=== PATIENT | male | born 1960 | race Caucasian/White ===

== ENCOUNTER 2017-08-24 12:30 | Inpatient (IN) ==
--- NOTE | 2017-08-23 21:10 | Discharge Summary ---
<Stephanie Tabares - Last Filed: 08/23/17 21:08> Date of Encounter: 08/23/17 - Discharge Diagnosis (1) Arthritis of shoulder region, left Priority: Primary Status: Acute - Discharge Medications Prescriptions: OxyCODONE Immed Rel [Roxicodone 5 MG] 5 mg PO Q6HR PRN #28 tablet PRN Reason: Pain Home Medications: OxyCODONE Immed Rel [Roxicodone 5 MG] 5 mg PO Q6HR PRN #28 tablet 08/23/17 [Rx] Omeprazole [PriLOSEC] 20 mg PO DAILY 08/24/17 [History] Venlafaxine HCl [Venlafaxine HCl ER] 75 mg PO DAILY 08/24/17 [History] Primary care physician: Duglas Forrest - Discharge Instructions Follow Up With: Stephanie Greene DO [Primary Care Provider] - - Hospital Course Hospital course: Mr. Trejo is a 56 year old male - Time Spent with Patient Total time spent providing and/or coordinating discharge services: <Jack Frey - Last Filed: 08/24/17 13:09> Date of Encounter: 08/24/17 - Discharge Diagnosis (1) Status post total replacement of left shoulder Priority: Primary Status: Acute (2) Arthritis of shoulder region, left Priority: Primary Status: Chronic Primary care physician: Duglas Forrest - Hospital Course Hospital course: Mr. Trejo is a 56 year old male - Time Spent with Patient Total time spent providing and/or coordinating discharge services:
[2017-08-24] MEDS ORDERED: CeFAZolin Syr 2,000MG/20 ML 2,000 MG/20 ML SYRINGE IVPB ONE (12:43)
[2017-08-24] MEDS ORDERED: Ringers Solution, Lactated 1,000 ML IVC SCH ×2 (12:45→16:39)
--- NOTE | 2017-08-24 13:01 | History & Physical Report ---
Date of Encounter: 08/24/17 Time of Encounter: 13:01 24 Hour HP Update - Instructions Instructions: If the History and Physical is less than 30 days old and was completed prior to A.M. admission and or procedure and has NOT been updated on calendar day of procedure please complete this update prior to performing procedure. - Update Patient reports changes in Medical Condition: No Changes in examination, assessment, or condition: No Changes in Medication: No Preop tests/diagnostics Reviewed: Yes Surgery Remains Indicated: Yes Consent for Planned Operative Procedure(s) Verified: Yes - Pre-Operative Checklist Preoperative Checklist Indicated: No Prophylactic Antibiotic Ordered: Yes Is VTE Prophylaxis Indicated?: Yes
[2017-08-24] MEDS ORDERED: Famotidine 20 MG/2 ML VIAL IVP ONE (13:12)
[2017-08-24] MEDS ORDERED: Gabapentin 300 MG CAPSULE PO ONE (13:12)
--- NOTE | 2017-08-24 13:20 | Anesthesia Evaluation PreOp ---
Date of Encounter: 08/24/17 Time of Encounter: 13:15 - Past History Planned Operation: Left Total Shoulder Cardiac History: Denies any Significant Hx Pulmonary History: Denies Any Significant HX AQUATICS COORDINATOR History: Denies Any Significant HX Other Medical History: GERD Anesthesia History: No Prior Anesthetic Complications Alcohol Use: none Drug use: none Medications and Allergies OxyCODONE Immed Rel [Roxicodone 5 MG] 5 mg PO Q6HR PRN #28 tablet 08/23/17 [Rx] Omeprazole [PriLOSEC] 20 mg PO DAILY 08/24/17 [History] Venlafaxine HCl [Venlafaxine HCl ER] 75 mg PO DAILY 08/24/17 [History] 3 Allergy/AdvReac Type Severity Reaction Status Date / Time No Known Allergies Allergy Verified 08/24/17 13:03 - Meds/Allergy Pre-op Review Medications Reviewed: Yes Allergies Reviewed: Yes Beta Blockers on Current Med List: No Anesthesia Results - Labs Laboratory Tests 08/21/17 08/21/17 09:51 09:51 Hgb 14.9 Hct 45.8 Plt Count 225 Sodium 139 Potassium 4.2 BUN 16 Creatinine 0.90 Anesthesia Exam O2 Sat Height 1.78 m Height 1.78 m Height 1.78 m Weight 95.708 kg Weight 95.708 kg Weight 95.708 kg O2 Sat by Pulse Oximetry 95 Vital Signs Temp Pulse Resp BP Pulse Ox 98.1 F 75 18 145/88 95 08/24/17 12:43 08/24/17 12:43 08/24/17 12:43 08/24/17 12:43 08/24/17 12:43 Height: 5'10 Weight: 211 lbs NPO (# of Hours): MN Pain Scale: 0 - HEENT Pupil (Motor): Pupils equal, EOMI Mallampati: II Teeth: Normal Oral Opening: Greater than 3 - AQUATICS COORDINATOR LOC: Oriented AQUATICS COORDINATOR Motor: Normal RUE, Normal LUE, Normal RLE, Normal LLE, Normal Face AQUATICS COORDINATOR Sensory: Normal: RUE, LUE, RLE, LLE, Face - Cardiac Rhythm: Regular Murmur: None JVD: No Carotid Bruit: No - Pulmonary Breath Sounds: bilateral Clear Respiratory Effort: Symmetrical Anesthesia Assess/Plan ASA Score: 2 Modified Weir Scale for Level of Consciousness: Cooperative, oriented, and tranquil Anesthetic Plan: General, Regional Monitoring Plan: Standard Monitors Recovery Plan: PACU (Discussed GA and RA, agrees to proceed)
[2017-08-24] MEDS ORDERED: ROPIVACAINE HCL/PF 0.5% 30 ML VIAL ONE (13:40)
--- NOTE | 2017-08-24 13:55 | Anesthesia Procedures ---
Date of Encounter: 08/24/17 Time of Encounter: 13:53 Procedures: Anesthesia - Nerve Block Procedure Date: 08/24/17 Time: 13:53 Allergies/Adv Reactions: NKDA Pre-op Diagnosis: L shoulder arthritis Surgical Procedure: L TSR Checklist: Correct Patient Identifier, Correct procedure, History checked Correct side: Left Blood Thinner: No Monitor Applied: EKG, BP, Pulse Oximetry Supplemental Oxygen via Nasal Cannula (L/min): 2 Sedation: Versed (mg): 2 Sedation: Fentanyl (mcg): 100 Indication: Post Op Analgesia (requested by Dr. Frey) Pre-op Neuro Deficits: No Block Type: Supraclavicular, Other (SCP) Catheter placed: No Sterile Technique: Yes Ultrasound used: Yes Anatomy identified: Yes Visual spread of Local: Yes Neuro Stimulation: No Blood on Needle Aspiration: No Smooth Injection of Local: Yes Pain with Injection of Local: No Prep: Chlorhexadine Needle: 22 x 50 mm Stimuplex Local: Ropivacaine (0.5%, 25mL for supraclavicular, 5mL for SCP), Other (6mg dexamethasone) Number of Attempts: 1 Complications: None/effective block Vitals: please see Ivonne Ardon RN's electronic documentation for VS
[2017-08-24] MEDS ORDERED: *HR* HYDROmorphone (PF) 1 MG/ML SYRINGE IVP PRN ×2 (13:56→16:39)
[2017-08-24] MEDS ORDERED: Ondansetron 4 MG/2 ML VIAL IVP PRN ×2 (13:56→16:39)
[2017-08-24] MEDS ORDERED: Dexamethasone 4 MG/ML VIAL ONE (14:20)
[2017-08-24] MEDS ORDERED: *HR* Midazolam HCl 2 MG/2 ML VIAL ONE (14:20)
[2017-08-24] MEDS ORDERED: *HR* FentaNYL (PF) 100 MCG/2 ML VIAL ONE (14:20)
[2017-08-24] MEDS ORDERED: *HR* Propofol 200 MG/20 ML VIAL IVP ONE (14:20)
[2017-08-24] MEDS ORDERED: *HR* Succinylcholine 200 MG/10 ML VIAL IVP ONE (14:20)
[2017-08-24] MEDS ORDERED: Lidocaine -MPF 2% 2 ML VIAL ONE (14:20)
[2017-08-24] MEDS ORDERED: EPHEDrine 50 MG/ML VIAL ONE (14:20)
[2017-08-24] MEDS ORDERED: Ondansetron 4 MG/2 ML VIAL ONE (15:09)
--- NOTE | 2017-08-24 15:13 | Orthopedic Operative Note ---
Date of procedure: 08/24/17 Pre-op diagnosis: Left shoulder arthritis Post-op diagnosis: same Procedure: Procedure: Left Total Shoulder Replacement Estimated blood loss: 100 cc Hardware:Arthrex glenoid: Large keel Eclipse 49 mm trunnion, 40 mm Eclipse Hollow screw, 49 x 18 Eclipse head 4, 4.75 swivel lock suture anchors Exam Under anesthesia:restricted all planes Procedural Notes: Grade 4 arthritic changes humeral head and glenoid socket Operative procedure: The patient was brought to the operating room and placed on the operating room table. After general anesthesia was administered the operative shoulder was examined. Findings were noted. The patient was placed in the modified beachchair position. All pressure points were padded appropriately. And the head was stabilized in the neutral position. The operative extremity was prepped and draped in the sterile surgical fashion. The patient received IV antibiotics prior to skin incision. A standard deltopectoral approach was made to the operative shoulder. Incision was made to the skin and subcutaneous tissue,hemo stasis was obtained with Bovie cautery. Using careful blunt dissection the cephalic vein was identified and mobilized medially. The deltopectoral interval was developed and the clavipectoral fascia was incised. The subscap was released off the lesser tuberosity and tagged with #2 FiberWire suture. The humerus was dislocated osteophytes were present were removed and the humeral cut was made along the anatomic neck, it was sized to a 49. Anterior and posterior Bankart retractors were placed to expose the glenoid. The glenoid guide was seated and the centering hole was made. It was reamed with the large appropriate reamer. The finishing guide was seated superior and inferior drill holes were placed. Finishing punch was seated trial was seated had good fit and fixation. The large glenoid keeled component was cemented in place held with digital pressure until cemented hardened. Component had good fit and fixation. The humerus was redislocated and prepared metaphyseal guide, the pin was seated measuring 40 mm . Trial components were seated shoulder had good stability. The component was impacted in place the eclipse screw 40 mm was seated giving excellent fixation. 49 mm head was seated shoulder had excellent stability and motion. Subscap was repaired with 4 #2 fiber tape placed in a José Manuel-Ariel fashion and secured to lateral tuberosity with 4, 4.75 swivel lock suture anchors. the shoulder was closed by the PA. The deltopectoral interval was closed with a running #1 PDS suture, subcutaneous tissue was irrigated and closed with 0 PDS suture, the skin was closed with Dermabond. The patient was placed in a sterile dressing, abduction brace and extubated. The patient was then transferred to the recovery room in stable condition. Anesthesia: JAYLEN Surgeon: Jack Frey Tobacco Sweeper: Sarah Knowles Condition: stable Disposition: PACU
[2017-08-24 15:56] LABS: Hematocrit 40.1 % (37.5-50.1)
[2017-08-24 15:59] LABS: Hemoglobin 13.2 g/dL (12.9-16.9)
--- NOTE | 2017-08-24 16:00 | Anesthesia Evaluation Post Op ---
Date of Encounter: 08/24/17 Time of Encounter: 15:59 - Vital Signs Vital Signs: Selected Entries 08/24/17 15:54 Temperature 98.1 F Pulse Rate 80 Respiratory Rate 14 Blood Pressure 131/80 O2 Sat by Pulse Oximetry 97 - Lungs Lungs: Clear Ascult./Percussion - Airway Airway: Non-obstructed - Cardiovascular Regular Rate - Mental Status Mental Status: Alert & Oriented, Answers Appropriately - Pain Pain Scale: 0 Pain Scale used: Numeric (1 - 10) - Nausea Vomiting Nausea Vomiting: Not Present - Hydration Hydration: Ice chips, Has not voided - Discharge PostOp Status: Transfer Patient to floor
[2017-08-24] MEDS ORDERED: MOM Conc 10 ML UD.LIQ PO PRN (16:39)
[2017-08-24] MEDS ORDERED: Sennosides 8.6 MG TABLET PO PRN (16:39)
[2017-08-24] MEDS ORDERED: Naloxone 0.4 MG/ML INJ IVP PRN (16:39)
[2017-08-24] MEDS ORDERED: Temazepam 15 MG CAPSULE PO PRN (16:39)
[2017-08-24] MEDS ORDERED: *HR* OxyCODONE Immed Rel 5 MG TABLET PO PRN ×2 (16:39)
[2017-08-24] MEDS ORDERED: CeFAZolin Premix DUPLEX 2,000 MG/50 ML BAG IVPB SCH (16:39)
[2017-08-24 17:42] VITALS: BP 134/88
[2017-08-24] MEDS ORDERED: *HR* Enoxaparin 30 MG/0.3 ML SYRINGE SQ SCH ×2 (18:00)
[2017-08-24] MEDS ORDERED: FLUARIX QUAD 2017-18 36MOS UP/PF 0.5 ML SYRINGE IM ONE (18:08)
[2017-08-25] MEDS ORDERED: Venlafaxine XR (24 HR) 75 MG CAP.ER.24H PO SCH (09:00)
--- NOTE | 2017-08-25 11:34 | Physician Discharge Referral ---
Home Health/Hosp Referral Info Transfer to: Home Health Attending Provider: Provider in Charge Post Discharge: PCP - Diagnosis (1) Arthritis of shoulder region, left Priority: Primary Status: Chronic (2) Status post total replacement of left shoulder Priority: Primary Status: Acute - Respiratory Orders None Smoking Cessation: Smoking cessation has been advised. For more information, call the [place] Tobacco Quit Line at 0-558-ITMM-NOW. - Diet/Nutrition Diet/Nutrition Orders: Regular - Activity Activity Orders: Up ad luz, Ambulate - Services Needed Following services are medically necessary services: Nursing, Home Health Aide, Physical Therapy, Occupational Therapy Home Care Orders: Opsite dressing, leave intact until first post-operative visit. Prineo intact. If dressing becomes >50% saturated, contact office, remove dressing and place appropriate dressing in its place. Do not allow for dressing to get wet. Shoulder Precautions x 6 weeks. Apply cold therapy wrap 3-6x/day for 20 minutes at a time. Encourage ambulation throughout the day. Use Incentive spirometer 10x/hour. Elevate affected extremity above heart as tolerated. NWB to affected upper extremity x 6 weeks. Stay in brace x 4-6 weeks during activity at bedtime. Will remove brace at first post-operative appointment. OK to remove during PT/ OT and Home exercises. - Transfer Medications Home Medications: OxyCODONE Immed Rel [Roxicodone 5 MG] 5 mg PO Q6HR PRN #28 tablet 08/23/17 [Rx] Omeprazole [PriLOSEC] 20 mg PO DAILY 08/24/17 [History] Venlafaxine HCl [Venlafaxine HCl ER] 75 mg PO DAILY 08/24/17 [History] Allergies/Adverse Reactions: 3 Allergy/AdvReac Type Severity Reaction Status Date / Time No Known Allergies Allergy Verified 08/24/17 13:03 Certification: Further, I certify that my clinical findings support that this patient is homebound (i.e. absences from home require considerable and taxing effort and are for medical reasons or [facility] or infrequently or short duration when for other reasons) because: Homebound Reason: Post-surgery restriction and or conditions limit ability to leave home Attestation: My signature below is to certify that this patient is under my care and that I, or nurse practitioner, or a physician's commercial loan assistant working with me, has a face-to -face encounter with this patient.
== END 2017-08-24 18:55 | disposition home or self-care (01) | DRG 483 ==
LOC: SAMDAY 12:30 → 3NENU 16:36
PROVIDERS: ADMIT Orthopaedic Surgery; ATTEND Orthopaedic Surgery